=== PATIENT | female | born 1945 | race Caucasian/White ===

== ENCOUNTER 2016-11-11 13:45 | Outpatient (RCR) | payer OTHER | END 2016-12-04 | disposition home or self-care (01) | LOC: PTY 13:45 | DX: Z96.641 Presence of right artificial hip joint (principal); M16.11 Unilateral primary osteoarthritis, right hip; M81.0 Age-related osteoporosis without current pathological fracture ==

== ENCOUNTER 2016-12-07 10:30 | Outpatient (RCR) | payer OTHER | END 2017-01-04 | disposition home or self-care (01) | LOC: PTY 10:30 | DX: M16.11 Unilateral primary osteoarthritis, right hip (principal); Z96.641 Presence of right artificial hip joint | CPT/HCPCS: 97035; 97110; 97140; G0283 ==